=== PATIENT | male | born 1995 | race Caucasian/White ===

== ENCOUNTER 2021-06-20 16:32 | Emergency (ER) | payer BC, OTHER ==
[~2021-06-20] VITALS: Ht 197.2 cm; Wt 104.0 kg
--- NOTE | 2021-06-20 17:36 | ED Headache ---
General Chief Complaint: Head/Cervical Problems Stated Complaint: H/A, DIZZINESS Nursing Triage Note: C/O HEADACHE AND NASAL STUFFINESS X 2 WEEKS HAS HAD SCRI[TS FOR PREDNISONE AND ZYRTEC FIRST WEEK THEN ANTIBIOTIC THE SECOND WEEK AND IS CONCERNED HE IS STILL HAVING SYMPTOMS. PATIENT STATES HE IS ALSO HAVING DIFFICULTY WITH FATIGUE IN HIS EYES WHEN HE IS READING AND USING THE COMPUTER. (KJ CHAVEZ) History of Present Illness Date Seen by Provider: Jun 20, 2021 Time Seen by Provider: 16:45 Initial Comments 25-year-old male reports allergic rhinitis and sinusitis symptoms for approximately 2 weeks causing nasal congestion and intermittent headaches. He has also tried Tylenol and Excedrin for the headaches with some relief. He has not experienced a headache at the present time. He is establishing care with a primary care provider in [place]. He has not had an eye exam in over 4 years. Timing/Duration: waxing and waning Severity/Quality: mild Location: frontal Prior Headaches/Recent Trauma: no recent headache/trauma Associated Symptoms: No confusion; facial pain; No nausea/vomiting; nasal congestion, sinus infection (KJ CHAVEZ) Allergies and Home Medications Patient Home Medication List Home Medication List Reviewed: Yes (KJ CHAVEZ) Review of Systems Review of Systems Constitutional: no symptoms reported, see HPI Ears, Nose, Mouth, Throat: see HPI, nose discharge Respiratory: no symptoms reported, see HPI Cardiovascular: no symptoms reported, see HPI Psychiatric/Neurological: See HPI, Headache (KJ CHAVEZ) All Other Systems Reviewed Negative Unless Noted: Yes (KJ CHAVEZ) Past Rrjsswq-Mrzsmw-Krofvh Hx Patient Social History Tobacco Use?: No Use of E-Cig and/or Vaping dev: No Substance use?: No Alcohol Use?: No Pt feels they are or have been: No (KJ CHAVEZ) Immunizations Up To Date First/Initial COVID19 Vaccinat: NOV 2020 Second COVID19 Vaccination David: NOV 2020 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 oz. kg; 26.00 BMI Method: General Appearance: WD/WN, no apparent distress HEENT: PERRL/EOMI, normal ENT inspection, TMs normal, pharynx normal; No wendy tophobia; other (Trace tenderness over frontal sinuses, no tenderness over maxillary sinuses.) Neck: non-tender, full range of motion, supple, normal inspection Cardiovascular: normal peripheral pulses, regular rate, rhythm Respiratory: chest non-tender, lungs clear, normal breath sounds Gastrointestinal: normal bowel sounds, non tender, soft Psychiatric: alert, oriented x 3, depressed affect Skin: normal color, warm/dry (KJ CHAVEZ) Progress/Results/Core Measures Results/Orders Lab Results Laboratory Tests Test 06/20/21 16:50 Range/Units Influenza Type A (RT-PCR) Not Detected Not Detecte Influenza Type B (RT-PCR) Not Detected Not Detecte SARS-CoV-2 RNA (RT-PCR) Not Detected Not Detecte (MARJ HARPER MD) My Orders Orders - MARJ HARPER MD Covid 19 Inhouse Test (06/20/21 16:34) Influenza A And B By Pcr (06/20/21 16:34) (MARJ HARPER MD) Vital Signs/I&O 06/20/21 06/20/21 16:45 17:57 Temp 37.1 Pulse 72 65 Resp 18 18 B/P (MAP) 130/92 (105) 122/60 Pulse Ox 97 96 (MARJ HARPER MD) Blood Pressure Mean: 105 Departure Impression Primary Impression: Headache Qualified Codes: R51.9 - Headache, unspecified Additional Impression: Sinusitis Qualified Codes: J01.10 - Acute frontal sinusitis, unspecified Disposition: 01 HOME, SELF-CARE Condition: Improved Departure-Patient Inst. Decision time for Depature: 17:35 (KJ CHAVEZ) Referrals: [facility],LOCAL PHYSICIAN (PCP) Primary Care Physician Patient Instructions: Headache, Adult (DC), Seasonal Allergies (DC), Sinusitis, Adult (DC) Add. Discharge Instructions: Continue to take the Flonase and Zyrtec. Irrigate your sinuses every 2-4 hours as needed for pressure. You may take the Excedrin Migraine or Tylenol or ibuprofen for headaches. Continue to drink approximately 16 oz of water every 2 hours while awake. Follow-up at [facility] with your scheduled appointment for later this month or at the walk-in care there if your symptoms are not improving or worsen. Schedule an appointment with an eye doctor for an evaluation. Return to the emergency department for new, urgent healthcare needs. All discharge instructions reviewed with patient and/or family. Voiced understanding. ATTENDING PHYSICIAN NOTE: I was physically present as attending physician in the emergency department during the care of this patient, but I was not directly involved in the decision making or delivery of care for this patient. (MARJ HARPER MD) KJ CHAVEZ Jun 20, 2021 17:36 MARJ HARPER MD Jun 21, 2021 19:44
[2021-06-20 17:57] VITALS: BP 122/60
== END 2021-06-20 17:57 | disposition home or self-care (01) ==
LOC: ER 16:34
DX: J32.9 Chronic sinusitis, unspecified (principal); Z20.822 Contact with and (suspected) exposure to COVID-19
CPT/HCPCS: 87636; 99282

== ENCOUNTER → 2021-12-01 | Outpatient (CLI) | payer BC ==
[~2021-12-01] MED LIST: RT-ALBUTEROL SULF 2.5 MG/3 ML PRE-MIX VIAL INH ONE
== END ==
LOC: RT 14:15
PROVIDERS: ATTEND Nurse Practitioner Family
DX: J45.20 Mild intermittent asthma, uncomplicated (principal)
CPT/HCPCS: 94060; 94726; 94729

== ENCOUNTER 2022-10-15 16:00 | Emergency (ER) | payer BC ==
[~2022-10-15] VITALS: Ht 200.6 cm; Wt 113.0 kg
--- NOTE | 2022-10-15 16:31 | ED Headache ---
General Chief Complaint: Head/Cervical Problems Stated Complaint: HEADACHES/VISION DISTURBANCE Nursing Triage Note: ARRIVED VIA AMB TO ROOM 06 WITH COMPLAINTS OF HEADACHE AND BLURRED VISION X1.5MONTHS . IS CURRENTLY BEING TREATED FOR SINUS ISSUES BUT PT THINKS IT IS MORE THAN THAT. Source: patient Exam Limitations: no limitations History of Present Illness Date Seen by Provider: Oct 15, 2022 Time Seen by Provider: 16:15 Initial Comments 26-year-old male presents for 2 months of headache. Is dull throbbing sometimes behind his left eye sometimes behind his right. He had a CT scan at the outset showing sinusitis. He has been treated for sinusitis with multiple different antibiotics which have not really helped. He has seen Dr Hartmann and is in the process of going to another ENT doctor later this month. Has any fevers or chills. No vision changes. No upper or lower extremity weakness numbness or tingling. Allergies and Home Medications Allergies Coded Allergies: No Known Drug Allergies (Unverified , 12/01/21) Patient Home Medication List Home Medication List Reviewed: Yes Review of Systems Review of Systems Constitutional: no symptoms reported Eyes: No Symptoms Reported Ears, Nose, Mouth, Throat: no symptoms reported Respiratory: no symptoms reported Cardiovascular: no symptoms reported Gastrointestinal: no symptoms reported Genitourinary: no symptoms reported Musculoskeletal: no symptoms reported Skin: no symptoms reported Psychiatric/Neurological: Headache Past Kfxzlxc-Zmhwpa-Jhogyn Hx Patient Social History Tobacco Use?: No Substance use?: No Alcohol Use?: No Immunizations Up To Date COVID19 Vaccine [employer]: UNKNOWN Family Medical History Reviewed Nursing Family Hx No Pertinent Family Hx Physical Exam Vital Signs Vital Signs - First Documented 10/15/22 16:06 Temp 36.5 Pulse 92 Resp 16 Pulse Ox 98 Capillary Refill : Less Than 3 Seconds Height, Weight, BMI Height: '" Weight: lbs. oz. kg; 28.00 BMI Method: General Appearance: WD/WN, no apparent distress HEENT: PERRL/EOMI, normal ENT inspection, TMs normal, pharynx normal Neck: non-tender, full range of motion, supple, normal inspection Cardiovascular: regular rate, rhythm, no edema, no gallop, no JVD, no murmur Respiratory: chest non-tender, lungs clear, normal breath sounds, no respiratory distress, no accessory muscle use Gastrointestinal: normal bowel sounds, non tender, soft, no organomegaly, no pulsatile mass Extremities: normal range of motion, non-tender, normal inspection, no pedal edema, no calf tenderness Psychiatric: alert, oriented x 3 Crainal Nerves: normal hearing, normal speech, PERRL Coordination/Gait: normal finger to nose, normal gait Motor/Sensory: no motor deficit, no sensory deficit, no pronator drift Skin: normal color, warm/dry Progress/Results/Core Measures Results/Orders Vital Signs/I&O 10/15/22 16:06 Temp 36.5 Pulse 92 Resp 16 B/P (MAP) Pulse Ox 98 Departure Communication (Admissions) Patient is hemodynamically stable with no red flag symptoms. Headaches consistent for 2 months. Has been seen by primary doctor multiple times, ENT and has been on antibiotics for chronic sinusitis which is thought to be the cause. His headaches have not gotten any better with treatment for sinusitis but not completely sure that this is the culprit. I advised he may need an MRI however there is no indication to do this emergently at this time. Recommended to call primary doctor tomorrow to discuss this. I offered Toradol injection a nd prescription and he declines today. He is visibly frustrated that we cannot perform an MRI here today. I explained to him that we do not have MRI available on the weekends nor is there an emergent indication for an MRI. Again he becomes frustrated. Regardless there is no indication for emergent MRI and he has no focal symptoms. He has no neurologic deficits no visual symptoms. He was already had a negative head CT outside of the sinusitis identified. He is discharged home in stable condition with supportive care. Impression Primary Impression: Headache Qualified Codes: R51.9 - Headache, unspecified Disposition: 01 HOME, SELF-CARE Condition: Stable Departure-Patient Inst. Referrals: [facility] (PCP/Family) Primary Care Physician Patient Instructions: Headache, Adult (DC) Add. Discharge Instructions: I am not certain that your headaches are coming from your sinuses. I recommend you call your primary doctor tomorrow to try to get scheduled for an MRI. As it is there is no indication of an emergent medical condition at this time. You have declined a trial of Toradol. Continue home regimen as previously prescribed. Return to the emergency department for any severe concerns. Follow-up with your primary doctor for any nonemergent needs. All discharge instructions reviewed with patient and/or family. Voiced understanding. JOE HIGGINS DO Oct 15, 2022 16:31
[2022-10-15 16:37] VITALS: BP 141/76
== END 2022-10-15 16:37 | disposition home or self-care (01) ==
LOC: EDUNIT# 16:00 → ER 16:02
DX: R51.9 Headache, unspecified (principal); J32.9 Chronic sinusitis, unspecified; Z28.310 Unvaccinated for COVID-19
CPT/HCPCS: 99281

== ENCOUNTER → 2022-10-20 | Outpatient (CLI) | payer BC ==
--- NOTE | 2022-10-20 09:26 | Diagnostic Imaging Report ---
PROCEDURE: MR imaging of the brain without contrast. TECHNIQUE: Multiplanar, multisequence MR imaging of the brain was performed without contrast. INDICATION: Headaches. No prior studies are available for comparison. Ventricles and sulci are within normal limits. No sulcal effacement is seen. There is no diffusion restriction. The normal expected flow-voids within the carotid siphons are seen. No acute intra-axial or extra-axial hemorrhage is detected. Corpus callosum is unremarkable. The sella and parasellar structures are unremarkable. IMPRESSION: Unremarkable noncontrast MRI of the brain. No acute feature is detected. Dictated by: Dictated on workstation # [id number]
== END ==
LOC: RAD 08:00
PROVIDERS: ATTEND Nurse Practitioner Family
DX: R51.9 Headache, unspecified (principal)
CPT/HCPCS: 70551